=== PATIENT | male | born 1990 | race Caucasian/White ===

== ENCOUNTER 2019-02-26 20:22 | Inpatient (IN) | payer OTHER ==
[~2019-02-26 20:22] MED LIST: Iopamidol 370 76% 50 ML VIAL FS ONE
[2019-02-26] MEDS ORDERED: Fentanyl 100 MCG/2 ML VIAL ONE ×2 (20:45→21:19)
[2019-02-26] MEDS ORDERED: Adacel (T-DAP) 0.5 ML SYRINGE ONE (20:45)
--- NOTE | 2019-02-26 20:58 | RAD ---
Radiograph left forearm 2 views: DATE: 02/26/2019 Time: 8:29 PM HISTORY: 28-year-old male status post acute trauma due to fall from ceiling. FINDINGS: Comminuted fracture of distal radial metaphysis and epiphysis with prominent dorsal angulation of dis saige fragment. No dislocation evident on lateral view. Ulnar styloid process poorly visualized. Rest of ulna intact. IMPRESSION: Acute, traumatic, comminuted, displaced, Colles' fracture of distal radial metaphysis.
[2019-02-26 21:01] LABS: Hemoglobin 14.2 g/dL (14.0-18.0); Mean Corpuscular HGB CONC 33.7 g/dL (32.0-36.0); Mean Corpuscular Hemoglobin 28.7 pg (27.0-31.0); Mean Corpuscular Volume 85.2 fL (78.0-98.0); Mean Platelet Volume 7.6 fL (7.4-10.4); Platelet Count 309 thou/uL (130-400); RBC Distribution Width 12.3 % (11.5-14.5); Red Blood Cell (RBC) Count 4.94 mill/uL (4.70-6.10); White Blood Cell (WBC) Count 17.7 thou/uL (4.8-10.8)
--- NOTE | 2019-02-26 21:13 | CT ---
CT BRAIN NONCONTRAST: DATE: 02/26/2019 HISTORY: 28-year-old male status post acute head trauma due to fall from ceiling FINDINGS: There is no evidence of acute intra-axial or extra-axial hemorrhage. There is no midline shift or any other mass effect. There is no extra-axial fluid collection. There is no evidence of obstructive hydrocephalus. Calvarium is intact. IMPRESSION: No acute intracranial findings.
--- NOTE | 2019-02-26 21:15 | CT ---
CT CERVICAL SPINE NONCONTRAST: DATE: 02/26/2019 HISTORY: 28-year-old male status post acute cervical trauma due to fall from ceiling. FINDINGS: Alignment is normal. Vertebral body heights are maintained. No prevertebral soft tissue swelling. No perched or jumped facets. No significant degenerative disc disease or significant degenerative facet disease identified. No fracture or any other major osseous abnormality. IMPRESSION: Normal
[2019-02-26 21:23] LABS: ALT (SGPT) 14 U/L (8-55); AST (SGOT) 19 U/L (5-34); Albumin 4.9 g/dL (3.5-5.0); Alkaline Phosphatase 64 U/L (40-110); Anion Gap 15 mmol/L (10-20); BUN (Urea Nitrogen) 7 mg/dL (8.9-20.6); Band 1 % (5-11); Bilirubin, Total 0.3 mg/dL (0.2-1.2); Calc. Creatinine Clearance 0 mL/min (70-130); Calcium 9.1 mg/dL (7.8-10.44); Carbon Dioxide 26 mmol/L (22-29); Chloride 102 mmol/L (98-107); Estimated GFR-MDRD Greater than 90; Globulin 2.6 g/dL (2.4-3.5); Glucose 110 mg/dL (70-105); Lipase 28 U/L (8-78); Lymphocytes 36 % (21-51); MDiff Complete? YES; Monocytes 2 % (0-10); Neutrophil 61 % (42-75); Platelet Morphology Comment Appears Adequate; Protein, Total 7.5 g/dL (6.0-8.3); RBC Morphology Normal; Sodium 140 mmol/L (136-145)
--- NOTE | 2019-02-26 21:23 | CT ---
CT THORAX WITH CONTRAST CT ABDOMEN WITH CONTRAST CT PELVIS WITH CONTRAST CT THORACIC SPINE WITH CONTRAST CT LUMBAR SPINE WITH CONTRAST: (Trauma protocol) DATE: 02/26/2019 HISTORY: Trauma to the chest, abdomen, and pelvis. 28-year-old male status post fall from ceiling.. TECHNIQUE: IV administration of iodinated contrast media. No oral contrast media. Single phase scans of thorax, abdomen, and pelvis. Sagittal reconstructions of thoracic and lumbar spine. FINDINGS: Lungs: No contusion. Pleura: No pneumothorax or hemothorax. Thoracic aorta: No dissection or rupture. Mediastinum: No hematoma. Abdomen and pelvis: Liver: No laceration Spleen: No laceration Pancreas: No surrounding fluid or fat stranding. Kidneys: No hydronephrosis or laceration. Bladder: No gross evidence of rupture. Abdominal aorta: No dissection or rupture. Small bowel: No dilation. Colon: No adjacent fat stranding. Free air: None. Free fluid: None. Skeleton: Ribs: No grossly displaced acute fracture. Sternum: No grossly displaced acute fracture. Thoracic spine: Small focal indentations at anterior superior endplates of T3, T4, and T6 without ove rall loss of height.. Lumbar spine: No acute compression fracture. Bilateral L5 pars interarticularis defects without anter olisthesis of L5 on S1. Pelvis: No grossly displaced acute fracture. No dislocation. IMPRESSION: 1. No evidence of acute traumatic injury within the thoracic cavity, abdominal cavity, or pelvic cavi ty. 2. Mild indentations of superior endplates anteriorly at T3, T4, and T6. These could either represent chronic changes including Schmorl's nodes, or minimal acute compression fractures. The former is favored. Recommend clinical correlation (is there tenderness and pain in the mid back?). 3. Bilateral L5 spondylolysis without spondylolisthesis..
[2019-02-26 21:41] LABS: Potassium 2.7 mmol/L (3.5-5.1)
--- NOTE | 2019-02-26 21:41 | CT ---
CT maxillofacial noncontrast: DATE: 02/26/2019 Time: 8:59 PM HISTORY: 28-year-old male status post acute facial trauma due to fall from ceiling. Dr. Henderson gave the reports of the CTs of the brain, C-spine, chest, abdomen, pelvis, and facial bones, by telephone to Dr. Bryan at 9:25 PM on 02/26/2019. FINDINGS: There is a left anterior mandibular fracture which passes between teeth numbers 11 and 12. There is a 2 mm anterolateral displacement of the left proximal fragment relative to the symphysis. No other mandibular fracture is identified. No dislocation at the TMJs. There is heterogeneous partial opacification of bilateral maxillary sinuses due to severe mucosal thi ckening. There is also a small air-fluid level in the left maxillary sinus. There is fragmentation of bone with mild displacement involving the posterior inferior aspect of the right maxillary sinus l ateral wall. This communicates with an empty tooth socket at the far posterior right maxilla. At the corresponding location on the left side, there is also an empty tooth socket, also with osseous d efect, also communicating with the left maxillary sinus. Empty tooth sockets at the far posterior aspects of the mandibles. All 4 of the upper and lower empty tooth sockets are filled with a mixture of soft tissue density material and gas. No fracture of the pterygoid plates, zygomatic arches, orbits,, or skull base. There is subcutaneous emphysema in the left submandibular space and left sublingual space. There is a soft tissue defect in the left paramedian upper lip. IMPRESSION: 1. Acute, traumatic, minimally displaced left parasymphyseal mandibular fracture. 2. Associated subcutaneous emphysema in the left sublingual and left submandibular spaces. 3. Findings consistent with status post bilateral upper and lower wisdom teeth extraction. 4. Mildly displaced comminuted fracture at right upper wisdom tooth extraction site, without callus. 5. Laceration of left upper lip.
--- NOTE | 2019-02-26 21:54 | RAD ---
Radiograph right forearm 2 views: DATE: 02/26/2019 HISTORY: 28-year-old male status post acute traumatic injury and pain to forearm due to fall from ceiling. FINDINGS: No displaced fracture of the radius or ulna identified. IMPRESSION: Negative.
[2019-02-26 22:10] LABS: Bilirubin Negative (Negative); Blood, Urine Negative (Negative); Clarity Clear (Clear); Glucose, Urine (Dipstick) Normal (Negative); Leukocyte Negative Leu/uL (Negative); Nitrite Negative (Negative); Protein, Urine (Dipstick) Negative (Neg-Trace); Urobilinogen Normal mg/dL (Less than 2)
[2019-02-26] MEDS ORDERED: Ketamine 50 MG/ML (10ML VIAL) ONE (22:30)
[2019-02-26] MEDS ORDERED: Potassium Chloride 20 MEQ TAB PO SCH (23:00)
[2019-02-26] MEDS ORDERED: Lidocaine 1% w/Epinephrine 1:100K 20 ML VIAL ONE (23:01)
[2019-02-26] MEDS ORDERED: Lidocaine 1% PF 5 ML VIAL ONE (23:04)
[2019-02-26] MEDS ORDERED: Potassium Chloride 40 MEQ in Sodium Chloride 0.9% 250 ML 250 ML IVPB SCH (23:30)
[2019-02-26] MEDS ORDERED: Ondansetron PF 4 MG/2 ML Vial ONE (23:41)
[2019-02-26] MEDS ORDERED: Morphine 4 MG/ML VIAL ONE (23:41)
[2019-02-26 23:50] LABS: Lactic Acid 2.6 mmol/L (0.5-2.2)
[2019-02-27 00:01] LABS: Amphetamine Not Detected (NotDetected); Barbiturates Screen Not Detected (NotDetected); Benzodiazepine Screen Not Detected (NotDetected); Cocaine Metabolite Screen Not Detected (NotDetected); Medtox Control Line Valid? VALID (VALID); Medtox Reader # READER 4; Methadone Not Detected (NotDetected); Methamphetamine Not Detected (NotDetected); Opiate Screen Not Detected (NotDetected); Oxycodone Screen Not Detected (NotDetected); Phencyclidine (PCP) Not Detected (NotDetected); THC/Cannabinoid Screen Not Detected (NotDetected); Tricyclic Screen Not Detected (NotDetected)
--- NOTE | 2019-02-27 00:20 | HP ---
REQUESTING PHYSICIAN: Dr. Bryan. ATTENDING SURGEON: Dr. Taylor. CONSULTATIONS: Orthopedics, Dr. Zhang; devops, Dr. Benton. HISTORY OF PRESENT ILLNESS: The patient is a 28-year-old man, who was reportedly trying to climb over a wall via the ceiling when the drop ceiling gave way and he fell landing on his outstretched hands and face. The patient was brought to the emergency department where he underwent evaluation and examination and was noted to have a mandible fracture and a left wrist fracture, at which time we were asked to evaluate the patient for admission and obtain Orthopedic and devops consultations. The patient denied loss of consciousness and the friends who were with him confirmed that there was no loss consciousness. The patient also noted to have midface laceration that was tacked together in the emergency department. ALLERGIES: NONE. CURRENT MEDICATIONS: None. PAST MEDICAL HISTORY: None. PAST SURGICAL HISTORY: [place] teeth extraction. 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 He is currently a [employer] working on active status for the weekend. He smokes approximately one pack of cigarettes per day. Drinks "once a week" to include tonight. Denies drug use. REVIEW OF SYSTEMS: A 10-point review of systems is negative as otherwise stated. PHYSICAL EXAMINATION: VITAL SIGNS: Blood pressure 159/93, heart rate 92, respirations 18, oxygen saturation 100% on room air, and temperature is 98.0. GENERAL: The patient is resting comfortably in bed. He is awake, alert, and oriented. Eryn Coma Scale is 15. HEENT: Head is normocephalic with contusions noted to forehead and also laceration to his upper lip along his frenulum and the vermilion border. Eyes, extraocular motions intact. PERRLA bilaterally. Ears are atraumatic without discharge. Nose, blood noted along the nasolabial fold and both nares. There does not appear to be a septal hematoma. Oropharynx, the patient is unable to open his jaw due to pain. There does appear to be some malocclusion. The patient is unable to tell me if this is his normal bite. NECK: Nontender and atraumatic. Trachea is midline. No JVD. CHEST: Clear to auscultation with good inspiratory and expiratory effort. HEART: Regular rate and rhythm. ABDOMEN: Soft, flat, and nontender with active bowel sounds. EXTREMITIES: Left wrist has a silver-fork deformity. The right wrist has contusion dorsally. All extremities are neurovascularly intact. BACK: Atraumatic and nontender. LABORATORY FINDINGS: WBCs 17.7, hemoglobin 14.2, hematocrit 42.1, platelets 309. Sodium 140, potassium 2.7, chloride 102, CO2 of 26, BUN 7, creatinine 0.89, and glucose 110. LFTs are unremarkable. Lipase 28. Lactic acid 3.2. Urinalysis is unremarkable. The patient's urine drug screen and blood alcohol level are pending. RADIOGRAPHIC REPORTS: CT of the brain without contrast shows no acute intracranial findings. CT of the face without contrast shows; 1. An acute traumatic minimally displaced left parasymphyseal mandibular fracture. 2. Associated subcutaneous emphysema in the left sublingual and left submandibular spaces. 3. Findings consistent with status post bilateral upper and lower wisdom teeth extraction. 4. Mildly displaced comminuted fracture of the right wisdom tooth extraction site without callus. 5. Laceration of the left upper lip. CT of the C-spine without contrast shows no acute fractures or subluxation. CT of the chest, abdomen, and pelvis with IV contrast shows no evidence of acute traumatic injury within the thoracic cavity, abdominal cavity or pelvic cavity. Radiographs of the left forearm showed acute traumatic comminuted, displaced Colles fracture of the distal radial metaphysis. Views of the right forearm shows no displaced fracture of the radius or ulna. ASSESSMENT: 1. Status post fall from ceiling. 2. Facial fractures. 3. Left upper lip laceration. 4. Right distal radius fracture. 5. Acute pain secondary to above. PLAN: Plan will be to admit the patient to the surgical floor. He will be made n.p.o. after midnight in preparation for open reduction and internal fixation of his mandible fracture and his distal radius fracture. The patient will have pulmonary toilet, gastritis and mechanical VTE prophylaxis in addition to pain management. The patient was examined in the emergency department by Dr. Taylor. Dr. Zhang and Dr. Benton were notified respectively of their areas to address. The patient was going to have a closed reduction and splinting done prior to leaving the ER. The patient was also having his facial laceration loosely approximated too. Job ID: [id number] [facility]
[2019-02-27] MEDS: Sodium Chloride 0.9% 1,000 ML IV SCH ×4 (00:46→21:53)
[2019-02-27] MEDS ORDERED: Cyclobenzaprine 10 MG TAB PO PRN (00:57)
[2019-02-27] MEDS ORDERED: Morphine 2 MG/ML SYRINGE SLOW IVP PRN (00:57)
[2019-02-27] MEDS ORDERED: Dextrose 50% Abboject 50 ML SYRINGE SLOW IVP PRN (00:57)
[2019-02-27] MEDS ORDERED: Ondansetron PF 4 MG/2 ML Vial IVP PRN (00:57)
[2019-02-27] MEDS ORDERED: Dextrose 5% in Water 1,000 ML IV PRN (00:57)
[2019-02-27] MEDS ORDERED: Ondansetron ODT 4 MG TAB PO PRN (00:57)
[2019-02-27] MEDS ORDERED: Ketorolac Tromethamine 30 MG/ML VIAL IVP SCH (01:00)
[2019-02-27] MEDS: Acetaminophen 1,000 MG in Premix Bag 1 BAG IVPB SCH ×4 (01:34→18:01)
[2019-02-27 01:51] VITALS: BMI 25.2
[2019-02-27 05:20] LABS: #Basophils 0.1 thou/uL (0.0-0.2); #Eosinphils 0.1 thou/uL (0.0-0.7); #Lymphocytes 3.8 thou/uL (1.20-3.40); #Monocytes 1.5 thou/uL (0.11-0.59); #Neutrophils 14.5 thou/uL (1.40-6.50); %Basophils 0.4 % (0.0-1.0); %Eosinophils 0.3 % (0.0-10.0); %Monocytes 7.6 % (0.0-10.0); %Neutrophils 72.7 % (42.0-75.0); Hemoglobin 12.8 g/dL (14.0-18.0); Mean Corpuscular HGB CONC 33.6 g/dL (32.0-36.0); Mean Corpuscular Hemoglobin 28.5 pg (27.0-31.0); Mean Corpuscular Volume 84.9 fL (78.0-98.0); Mean Platelet Volume 7.5 fL (7.4-10.4); Platelet Count 246 thou/uL (130-400); RBC Distribution Width 12.2 % (11.5-14.5); White Blood Cell (WBC) Count 19.9 thou/uL (4.8-10.8)
[2019-02-27 05:46] LABS: Anion Gap 9 mmol/L (10-20); BUN (Urea Nitrogen) 7 mg/dL (8.9-20.6); Calc. Creatinine Clearance 170 mL/min (70-130); Calcium 8.8 mg/dL (7.8-10.44); Carbon Dioxide 27 mmol/L (22-29); Chloride 107 mmol/L (98-107); Estimated GFR-MDRD Greater than 90; Glucose 96 mg/dL (70-105); Potassium 4.2 mmol/L (3.5-5.1); Sodium 139 mmol/L (136-145)
[2019-02-27] MEDS: Ketorolac Tromethamine 30 MG/ML VIAL IVP SCH ×3 (06:31→18:01)
[2019-02-27] MEDS: Famotidine 20 MG TAB PO SCH ×2 (07:31→21:52)
[2019-02-27] MEDS ORDERED: CEFAZOLIN 2 GM in Premix Bag 1 BAG IVPB SCH (08:30)
[2019-02-27] MEDS ORDERED: HYDROmorphone 0.5 MG/0.5 ML SYRINGE ONE (09:02)
[2019-02-27] MEDS ORDERED: Fentanyl 100 MCG/2 ML VIAL ONE ×2 (09:02→12:47)
[2019-02-27] MEDS ORDERED: Midazolam HCl 2 mg/2 ml Vial ONE (09:02)
[2019-02-27] MEDS ORDERED: Lidocaine 2% Jelly 5 ML TUBE ONE (09:03)
[2019-02-27] MEDS ORDERED: Lidocaine 1% w/Epinephrine 1:100K 20 ML VIAL ONE (09:20)
[2019-02-27] MEDS ORDERED: Chlorhexidine Gluconate 15 ML UDCUP SSP ONE (09:20)
[2019-02-27] MEDS ORDERED: Bupivacaine 0.25% HCL 30 ML VIAL ONE (09:20)
--- NOTE | 2019-02-27 09:35 | CON ---
DATE OF CONSULTATION: 02/27/2019 REQUESTING PHYSICIAN: Wagner Taylor DO BRIEF HISTORY OF PRESENT ILLNESS: The patient is a 28-year-old right-hand dominant gentleman, who was trying to climb over a wall via the ceiling and attic area when he dropped through the ceiling landing on his outstretched arms. He was brought to the emergency department where he was found to have a gross deformity of the left wrist as well as some facial bleeding. Workup included CT of the face as well as x-rays of both wrists. These demonstrated a left distal radius fracture with dorsal comminution and dorsal tilt as well as evidence of bony facial injury. Orthopedic consultation was then requested. The patient admitted to the Trauma Service. PAST MEDICAL HISTORY: Healthy. PAST SURGICAL HISTORY: [place] teeth extraction approximately 2 weeks ago. MEDICATIONS: None. ALLERGIES: NONE KNOWN. SOCIAL HISTORY: The patient is employed. He smokes about one pack of cigarettes per day. He drinks alcohol socially. He denies recreational drug use. FAMILY HISTORY: Noncontributory. REVIEW OF SYSTEMS: No recent fevers, chills, or sweats. Denies chest pain or shortness of breath. No numbness or tingling in the left upper extremity. PHYSICAL EXAMINATION: VITAL SIGNS: He is found to have a temperature of 98.2, heart rate of 70, respiratory rate of 16, and blood pressure 116/66. HEENT: Remarkable for dried blood along his face and forehead. He does have some mild swelling and bruising as well. HEART: Shows a regular rate and rhythm with no murmur. LUNGS: Clear to auscultation bilaterally with good breath sounds. Chest wall is nontender. ABDOMEN: Soft with normal bowel sounds. PELVIS: Stable to compression and nonpainful. EXTREMITIES: Remarkable for left upper extremity with a dinner fork deformity. He does have intact sensation in the radial, median, and ulnar distributions. There are no open wounds, although he does have some dorsal skin contusion. He is able to wiggle his fingers in a limited fashion. The elbow and shoulder appear atraumatic. IMAGING DATA: X-rays: Two-view x-ray of the left forearm shows a distal radius fracture with dorsal displacement. Two-view x-ray of the right forearm shows normal bony anatomy. LABORATORY DATA: White count of 17.7, hematocrit of 42.1, and 309,000 platelets. ASSESSMENT: This is a 28-year-old right-hand dominant gentleman, status post fall from height, landing on outstretched hand sustaining a comminuted and displaced left distal radius fracture. PLAN: At this time, the patient will be scheduled for open reduction and internal fixation of this left distal radius. I have discussed with the patient risks and benefits of this procedure. Risks include, but are not limited to bleeding, infection, nerve injury, wrist stiffness, hardware failure, nonunion, malunion, loss of limb or life. The patient appears to understand and does wish to proceed. We will try and coordinate surgery with the Maxillofacial Surgical Service who by report also needs to work on this gentleman in the operating room. The written consent will be obtained prior to surgery. Job ID: [id number]
[2019-02-27] MEDS ORDERED: Dexamethasone 20 MG/5 ML VIAL ONE (10:53)
[2019-02-27] MEDS ORDERED: Glycopyrrolate 0.2 MG/ML 5 ML SYRINGE ONE (10:53)
[2019-02-27] MEDS ORDERED: PROPOFOL 200 MG/20 ML VIAL ONE (10:53)
[2019-02-27] MEDS ORDERED: Rocuronium Bromide 10 MG/ML (10ML VIAL) ONE (10:53)
[2019-02-27] MEDS ORDERED: Ondansetron PF 4 MG/2 ML Vial ONE (10:53)
--- NOTE | 2019-02-27 10:53 | RAD ---
XR Wrist Lt 2 View: 02/27/2019 12:00 AM CLINICAL INDICATION: ORIF of left wrist COMPARISON: Left forearm radiograph dated February 26, 2019. FINDINGS: Bones: There is been interval reduction and volar plate and screw fixation of the comminuted intra-a rticular distal radius fracture. Fracture alignment is near anatomic. There is improved alignment involving the ulnar styloid process fracture. Joints: Joints space is preserved.. Soft Tissue: Normal.. Total fluoroscopic time was 7.7 seconds. Total exposure was 0.15 mGy. IMPRESSION: ORIF of the left wrist fracture.
[2019-02-27] MEDS ORDERED: HYDROmorphone 2 MG/ML VIAL SLOW IVP PRN (11:03)
[2019-02-27] MEDS ORDERED: Meperidine HCl/PF 25 MG/ML VIAL SLOW IVP PRN ×2 (11:03)
[2019-02-27] MEDS ORDERED: Promethazine HCl 25 MG/ML VIAL IM PRN ×2 (11:03)
[2019-02-27] MEDS ORDERED: Ondansetron HCl/PF 4 MG/2 ML Vial IVP PRN ×2 (11:03)
[2019-02-27] MEDS ORDERED: Promethazine HCl 25 MG/ML VIAL SLOW IVP PRN ×2 (11:03)
[2019-02-27] MEDS ORDERED: Bacitracin Zinc Ointment 30 gm TUBE ONE (12:17)
[2019-02-27] MEDS: Clindamycin/D5W 900 MG in Premix Bag 1 BAG IVPB SCH ×2 (13:32→21:54)
--- NOTE | 2019-02-27 14:52 | CON ---
DATE OF CONSULTATION: 02/27/2019 HISTORY OF PRESENT ILLNESS: This is a 28-year-old male, status post fall while climbing over a wall falling through the ceiling, resulting in a left wrist fracture and left mandibular fracture as well as left nasal laceration. Oral surgery was consulted for surgical intervention of the facial trauma. PAST MEDICAL HISTORY: None. MEDICATIONS: None. ALLERGIES: LATEX. PAST SURGICAL HISTORY: [place] tooth extraction 2 weeks ago. SOCIAL HISTORY: One pack per day smoking. Social alcohol use. Denies illicit drug use. 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 REVIEW OF SYMPTOMS: Negative. PHYSICAL EXAMINATION: VITAL SIGNS: Afebrile. GENERAL: The patient is lying in bed comfortably. Awake, alert, oriented, in no acute distress. HEENT: Normocephalic. Pupils are equally round and reactive to light. Extraocular movements intact. Visual acuity grossly intact. Ears atraumatic. Nose, nasal bridge symmetrical. No palpable crepitus. No epistaxis. Appears to be laceration involving the left upper lip and left nasal sill with some Prolene sutures and bloody discharge and scabbing over the wound. Maximum interincisal opening limited secondary to pain. There is a small step in the occlusion between teeth #21 and 22. Tongue, full range of motion. Floor of mouth, soft. Mild vestibular and floor of mouth edema consistent with injury. CT of the face shows a left mandibular body fracture with mild displacement extending through teeth #21, 22. There is evidence of recent extractions of teeth #1, 16, 17, and 32. Mandibular condyle seated in the fossa. No evidence of condylar fractures. ASSESSMENT: This is a 28-year-old male, status post fall resulting in mandibular fracture and facial laceration. PLAN: The plan was discussed for closed reduction versus open reduction, internal fixation of mandibular fracture as well as closure of the facial laceration in conjunction with treatment of the left wrist fracture by Dr. Zhang. Questions were sought and answered. Informed consent was obtained. The patient and the patient's family agree with the proposed plan. Job ID: [id number] MTDD
--- NOTE | 2019-02-27 20:31 | OP ---
DATE OF PROCEDURE: 02/27/2019 PREOPERATIVE DIAGNOSIS: Left intra-articular distal radius fracture (greater than 3 fragments). POSTOPERATIVE DIAGNOSIS: Left intra-articular distal radius fracture (greater than 3 fragments). PROCEDURE PERFORMED: Open reduction and internal fixation of left distal radius. ANESTHESIA: General. NIGHT SHIFT: Bibiana Johnson PA-C TOURNIQUET TIME: Approximately 60 minutes at 250 mmHg. ESTIMATED BLOOD LOSS: Less than 5 mL. IMPLANTS: Synthes 2.4 mm variable angle LCP 2-column volar plate. COMPLICATIONS: None. DRAINS: None. SPECIMEN: None. OUTCOME: Near-anatomic alignment. INDICATIONS FOR PROCEDURE: The patient is a 28-year-old gentleman status post fall through ceiling, landing on outstretched left hand, sustaining a comminuted intra-articular distal radius fracture. After discussion with the patient including risks and benefits, we have decided to proceed with open reduction and internal fixation. Informed consent has been obtained. I believe all questions have been answered. DESCRIPTION OF PROCEDURE: The patient was brought to the operating room and a time-out performed followed by induction of general anesthesia. This surgical procedure was then done while a maxillofacial procedure was also being performed. A sterile prep and drape were performed of the left upper extremity. The limb was exsanguinated with Esmarch bandage, tourniquet inflated to 250 mmHg. A volar radial skin incision was made after skin was sharply incised. Dissection was carried down between the interval of the flexor carpi radialis and brachioradialis. A neurovascular bundle was identified and reflected radially. The pronator quadratus was released off the radial border of the distal radius and reflected towards the midline. Next, the fracture could be well visualized. An elevator was used to remove some soft tissue that was interposed at the fracture site. A bulb syringe was used to lavage saline to remove the hematoma. The fracture was then reduced. The patient was found to have a bump at the distal radial metaphysis consistent of a prior fracture that had fully healed. Given this bump, it was difficult to get the plate to lay well along the volar cortex and as such, a rongeur was used to smooth down this bony metaphyseal bump. Once done, the plate was able to be affixed to the volar surface of the distal radius in a normal fashion. This was held in place provisionally with K-wires and then AP and lateral C-arm image was obtained to confirm appropriate positioning of plate. Next, a cortical screw was applied to the longitudinal limb of the plate proximal to the fracture. This was then followed by insertion of five locking screws through the horizontal limb of the plate securely capturing the articular fragments. Two additional cortical screws were applied proximally. Next, final AP and lateral C-arm images were obtained that showed a wrist with restored radial inclination, volar tilt, and length. The wound irrigated, then closed in layers with 0 Vicryl deep followed by 2-0 Vicryl and then nylon for the skin. Xeroform gauze, Webril, and fiberglass splint was applied to the arm. Tourniquet was let down at the completion of dressing and patient was transferred to recovery room in stable condition following completion of the maxillofacial procedure. There were no complications. He tolerated the procedure well. Job ID: [id number]
[2019-02-27] MEDS ORDERED: Acetaminophen/Codeine Oral Solution PO PRN (22:23)
[2019-02-27] MEDS ORDERED: Ibuprofen 100 MG/5 ML UDCUP PO SCH (22:30)
[2019-02-27] MEDS ORDERED: Acetaminophen 650 MG/20.3 ML UDCUP PO SCH (22:30)
--- NOTE | 2019-02-28 02:38 | PRG ---
DATE OF SERVICE: SUBJECTIVE: The patient is currently on the surgical floor. He is postop from open reduction and internal fixation of right distal radius fracture, right mandible fracture, and repair of complex facial laceration. The patient tolerated these procedures well and postoperatively, his pain is being controlled. His jaw is wired shut and he is on a blenderized diet. He denies any nausea, vomiting, and he has been out of bed to use the bathroom. OBJECTIVE: VITAL SIGNS: Stable. The patient is afebrile. GENERAL: The patient is resting comfortably in bed. He is awake, alert, and oriented. Eryn Coma Scale is 15. HEENT: His face laceration is well approximated and is clean, dry, and intact. The patient is having no difficulties maintaining his airway and controlling his saliva and adapting to his jaw being wired shut. LUNGS: Clear to auscultation bilaterally. HEART: Regular rate and rhythm. ABDOMEN: Soft, flat, nontender with active bowel sounds. EXTREMITIES: Left upper extremity has postop dressing, it is clean, dry, and intact. ASSESSMENT AND PLAN: 1. Status post fall from ceiling. 2. Facial fractures, status post open reduction and internal fixation of mandible fracture. 3. Status post repair of complex facial laceration. 4. Status post open reduction and internal fixation of left wrist/distal radius fracture. PLAN: Plan will be to continue supportive care. Work with Physical and Occupational Therapy tomorrow. Liquid pain control orally and discharge when appropriate. Job ID: [id number]
[2019-02-28] MEDS ORDERED: Ibuprofen 100 MG/5 ML UDCUP PO SCH (06:00)
[2019-02-28] MEDS ORDERED: Acetaminophen 650 MG/20.3 ML UDCUP PO SCH (06:00)
[2019-02-28 07:18] VITALS: TEMP 97.7
[2019-02-28 11:39] VITALS: BP 121/74
--- NOTE | 2019-02-28 13:56 | DIS ---
DATE OF ADMISSION: 02/27/2019 DATE OF DISCHARGE: 02/28/2019 ADMISSION DIAGNOSES: Fall from ceiling, mandible fracture, upper lip laceration, and left distal radius fracture. DISCHARGE DIAGNOSES: Fall from ceiling, mandible fracture, upper lip laceration, and left distal radius fracture. CONSULTING PHYSICIANS: Dr. Zhang of Orthopedic Surgery and Dr. Benton of [facility] [place]. PROCEDURES: The patient went to the OR on February 27, 2019, and had an ORIF of the left distal radius fracture and fixation of the facial fractures as well as suture repair of the lip laceration. HOSPITAL COURSE: The patient is a 28-year-old male, who presented to the emergency department after he fell from a ceiling. He was worked up and was found to have an upper lip laceration, a mandibular fracture and a left distal radius fracture. He went to the OR with Dr. Zhang and Dr. Benton for fixation of those injuries. Postoperatively, he tolerated a full liquid diet. His pain was well controlled. He was ambulating without difficulty and voiding without issues. DISCHARGE DISPOSITION: Home. DISCHARGE CONDITION: Satisfactory. PHYSICAL EXAMINATION: VITAL SIGNS: Temperature 97.7, pulse 79, respirations 16, oxygen saturation 98% on room air, blood pressure 121/74. GENERAL: Well-appearing young male, sitting up in bed with no signs of acute distress. HEENT: The patient with mouth wired shut, but no signs of airway compromise. Some mild facial swelling. PULMONARY: Equal chest rise and fall. Clear breath sounds bilaterally. No signs of acute respiratory distress. CARDIAC: Regular rate and rhythm. No murmurs, gallops, or rubs. GASTROINTESTINAL: Soft, nontender, and nondistended. EXTREMITIES: A 2+ pulses in all extremities. Gross motor and sensation are intact. No significant swelling noted. Left upper extremity with splint that is clean, dry, and in place. NEUROLOGIC: GCS is 15. DISCHARGE INSTRUCTIONS: The patient was discharged home. Activity as tolerated. He has a full liquid diet. He has wire cutters. DISCHARGE MEDICATIONS: Include Tylenol with codeine. FOLLOWUP APPOINTMENTS: The patient is to follow up with Dr. Zhang in 14 days as well as follow up with Dr. Benton of [facility] [place]. There is no need for followup with Trauma Surgery. This is a summary of the patient's hospitalization. For full details, please see his medical record in its entirety. Job ID: [id number]
--- NOTE | 2019-03-01 01:47 | OP ---
DATE OF PROCEDURE: 02/27/2019 PREOPERATIVE DIAGNOSES: 1. Left mandibular body fracture. 2. 5 cm complex nasal laceration. 3. 5 cm simple vestibular mucosa laceration. POSTOPERATIVE DIAGNOSES: 1. Left mandibular body fracture. 2. 5 cm complex nasal laceration. 3. 5 cm simple vestibular mucosa laceration. PROCEDURE PERFORMED: Closed reduction of left mandibular body fracture. ANESTHESIA: General nasal endotracheal anesthesia. INDICATIONS FOR PROCEDURE: This is a 28-year-old male status post fall through a ceiling, resulting in left mandibular fracture and complex facial lacerations requiring operative intervention in the operating room. Indications, risks, benefits, and alternatives of procedure were discussed in detail with the patient and patient's family. Questions were sought and answered. Informed consent was obtained. Patient agreed with the proposed surgical plan. DESCRIPTION OF PROCEDURE: The patient was transferred to the operating room by Anesthesia Nursing in the OR table, where a safety belt was secured. Standard ASA monitors were attached and stable. The patient was noted to have stable vital signs. IV induction by Anesthesia with nasoendotracheal intubation to the right naris x1 without complication. The endotracheal tube was secured in a standard head wrap fashion. The patient was prepped and draped in a sterile fashion and a time-out was performed. We began by thoroughly suctioning the oropharynx and moistened Ray-Bekah throat pack was placed. Local infiltration was administered throughout the maxillary and mandibular vestibules. Then, arch bars were fitted and secured from first molar to first molar and the maxillary mandibular arches using 24-gauge circumdental wires. A bridle wire was used then to aid in reduction of the left mandibular body fracture. Stable and repeatable occlusion was achievable and the patient was placed into maxillomandibular fixation after removal of the throat pack with 24-gauge loop wires. Then, the lower lip vestibular mucosa laceration was irrigated with normal saline and closed with running and interrupted 4-0 chromic sutures. The stay sutures placed by the ER physician and the nasal labial region were removed and scabbing was removed. The wound was copiously irrigated revealing a complex stellate macerated laceration extending through the upper lip philtrum to the nasal sill. Full-thickness through the orbicularis mc. No intraoral communication was appreciated. The wound was copiously irrigated with saline and a layered closure was performed with 4-0 Vicryl and 5-0 fast-absorbing plain gut. Bacitracin was placed all along the wound. This completed the procedure. The patient was extubated in the room and returned to PACU in stable condition. FLUID: See anesthesia records. BLOOD LOSS: 20 mL. DRAINS: None. SPECIMENS: None. IMPLANTS: None. COUNTS: Needle and sponge count verified as correct. COMPLICATIONS: None. Job ID: [id number]
== END 2019-02-28 13:34 | disposition home or self-care (01) | DRG 133 ==
LOC: ERS 20:22 → SURG B 02-27 00:49
PROVIDERS: ADMIT Surgery; ATTEND Surgery
PROC: 0NSV34Z Reposition Left Mandible with Internal Fixation Device, Percutaneous Approach (ICD-10-PCS; principal; 2019-02-27)
PROC: 09QK0ZZ Repair Nasal Mucosa and Soft Tissue, Open Approach (ICD-10-PCS; 2019-02-27)
PROC: 0PSJ04Z Reposition Left Radius with Internal Fixation Device, Open Approach (ICD-10-PCS; 2019-02-27)
PROC: 0CQ1XZZ Repair Lower Lip, External Approach (ICD-10-PCS; 2019-02-27)
PROC: 09QKXZZ Repair Nasal Mucosa and Soft Tissue, External Approach (ICD-10-PCS; 2019-02-27)
DX: S02.602A Fracture of unspecified part of body of left mandible, initial encounter for closed fracture (principal); S52.532A Colles' fracture of left radius, initial encounter for closed fracture; S01.511A Laceration without foreign body of lip, initial encounter; W17.89XA Other fall from one level to another, initial encounter; S01.21XA Laceration without foreign body of nose, initial encounter
CPT/HCPCS: 36415; 70450; 70486; 71260; 72125; 74177; 76000; 80048; 80053; 80306; 81003; 83605; 83690; 85025; 86850; 86900; 86901; 90715; 93005; C1713; J0131; J0690; J1100; J1170; J1885; J2001; J2250; J2270; J2405; J2704; J3010; J3480; J3490; J7050; Q9967; S0020